=== PATIENT | female | born 1965 | race Two or more races ===

== ENCOUNTER 2023-03-05 11:54 | Emergency (ER) | payer OTHER ==
[~2023-03-05] VITALS: Ht 152.4 cm; Wt 118.2 kg
[2023-03-05] MEDS ORDERED: IBUP-1492 PO (12:37)
[2023-03-05] MEDS ORDERED: IBUPROFEN 600 MG TABLET PO ONE (12:45)
[2023-03-05 12:49] VITALS: BP 122/87
== END 2023-03-05 12:56 | disposition home or self-care (01) ==
LOC: EMS 11:55
DX: M72.2 Plantar fascial fibromatosis (principal); Z90.49 Acquired absence of other specified parts of digestive tract; Z98.890 Other specified postprocedural states
CPT/HCPCS: 99282; Z7502; Z7610